=== PATIENT | female | born 1980 | race Two or more races ===

== ENCOUNTER 2020-01-31 17:29 | Emergency (ER) | payer BC ==
[~2020-01-31] VITALS: Ht 167.6 cm; Wt 74.8 kg
--- NOTE | 2020-01-31 17:52 | NUR ---
bibs from home to er bed 16. aaox4. not in resp distress. ambulatory. came in for nause and multiple vommiting episodes since this morning. pt reports that she is 27 weeks with last visit to [facility] 2 days ago. was at the bedside for eval. awaiting orders
[2020-01-31] MEDS ORDERED: PYRIDOXINE HCL INJ 100 MG/ML VIAL IV ONE (18:00)
[2020-01-31] MEDS ORDERED: IV NS 0.9% 1,000 ML BAG IV ONE (18:00)
[2020-01-31] MEDS ORDERED: diphenhydrAMINE HCL 50 MG/ML VIAL IV ONE (18:00)
[2020-01-31] MEDS ORDERED: METOCLOPRAMIDE HCL 10 MG/2 ML VIAL IV ONE (18:00)
[2020-01-31] MEDS ORDERED: PYRIDOXINE HCL INJ 100 MG/ML VIAL ONE (18:02)
[2020-01-31] MEDS ORDERED: diphenhydrAMINE HCL 50 MG/ML VIAL ONE (18:02)
[2020-01-31] MEDS ORDERED: METOCLOPRAMIDE HCL 10 MG/2 ML VIAL ONE (18:03)
--- NOTE | 2020-01-31 18:08 | NUR ---
iv line established on r ac 18g. 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
[2020-01-31 18:11] LABS: BASOPHILS % (AUTO) 0.2 % (0.0-2.0); EOSINOPHILS % (AUTO) 0.4 % (0.0-6.0); HEMATOCRIT 36 % (33-45); HEMOGLOBIN 12.4 g/dL (11.5-14.8); LYMPHOCYTES # (AUTO) 0.6 /CMM (0.8-4.8); LYMPHOCYTES % (AUTO) 7.1 % (20.0-44.0); MEAN CORPUSCULAR HGB CONC 35 g/dl (31.0-36.0); MEAN CORPUSCULAR VOLUME 92 fL (82-100); MONOCYTES # (AUTO) 0.4 /CMM (0.1-1.30); MONOCYTES % (AUTO) 5.3 % (2.0-12.0); NEUTROPHILS # (AUTO) 7.1 /CMM (1.8-8.9); PLATELET COUNT (AUTO) 283 /CMM (150-450); RED BLOOD CELL COUNT(AUTO) 3.92 MIL/uL (4.0-5.2); WHITE BLOOD COUNT (AUTO) 8.1 K/uL (4.3-11.0)
[2020-01-31 18:17] LABS: CREATININE 0.6 mg/dL (0.6-1.3); POTASSIUM 3.9 mmol/L (3.5-5.1)
[2020-01-31 18:24] LABS: BILIRUBIN,DIRECT 0.2 mg/dL (0.0-0.2); BILIRUBIN,TOTAL 0.5 mg/dL (0.2-1.0)
--- NOTE | 2020-01-31 19:17 | NUR ---
Patient discharged to home in stable condition. Written and verbal after care instructions given. Patient verbalizes understanding of instruction.IV removed. Catheter intact and site benign. Pressure and 4x4 applied to site. No bleeding noted. Pt ambulatory with a steady gait
[2020-01-31 19:18] VITALS: BP 116/72
== END 2020-01-31 19:24 | disposition home or self-care (01) ==
LOC: ER 17:29
DX: O21.0 Mild hyperemesis gravidarum (principal); Z3A.27 27 weeks gestation of pregnancy
CPT/HCPCS: 36415; 80048; 80076; 83690; 85025; 96361; 96374; 96375; 99284; J1200; J2765; J3415; J7030